=== PATIENT | male | born 1980 | race Caucasian/White ===

== ENCOUNTER 2021-02-08 22:39 | Emergency (ER) | payer OTHER ==
[~2021-02-08 22:39] MED LIST: BACTRIM DS TAB1 EACH PO; ERYTHROMYCIN O3.5 GM OS; FLEXERIL 10 MG10 MG PO; IBUPROFEN600 MG PO; KEFLEX CAP 500500 MG PO; MOBIC15 MG PO; NAPROSYN500 MG PO; SILVADENE20 GM TP
[2021-02-09 08:06] LABS: HEMOGLOBIN 16.6 gm/dl (14.0-17.5); RED BLOOD COUNT 5.57 M/UL (4.20-5.50); WHITE BLOOD COUNT 10.8 K/UL (4.5-11.0)
[2021-02-09 08:54] LABS: BUN/CREATININE RATIO 23 (0-10)
== END 2021-02-09 10:35 | disposition home or self-care (01) ==
LOC: ER1 22:39
PROVIDERS: Emergency Medicine
DX: R25.2 Cramp and spasm (principal)
CPT/HCPCS: 80048; 85025; 99283

== ENCOUNTER 2021-05-24 11:29 | Emergency (ER) | payer OTHER ==
[2021-05-24] MEDS ORDERED: VENTOLIN HFA 66.7 GM INH (14:29)
[2021-05-24] MEDS ORDERED: PREDNISONE50 MG PO (14:29)
[2021-05-24] MEDS ORDERED: IBUPROFEN600 MG PO (14:29)
== END 2021-05-24 14:35 | disposition home or self-care (01) ==
LOC: ER1 11:29
DX: U07.1 COVID-19 (principal)
CPT/HCPCS: 87081; 87880; 99283; U0002

== ENCOUNTER 2021-11-29 14:31 | Emergency (ER) | payer OTHER ==
[~2021-11-29 14:31] MED LIST changes: +PREDNISONE50 MG PO; +VENTOLIN HFA 66.7 GM INH
[2021-11-29 15:42] LABS: HEMOGLOBIN 13.6 gm/dl (14.0-17.5); RED BLOOD COUNT 4.59 M/UL (4.20-5.50); WHITE BLOOD COUNT 5.6 K/UL (4.5-11.0)
[2021-11-29 16:16] LABS: BUN/CREATININE RATIO 15 (0-10)
== END 2021-11-29 17:12 | disposition home or self-care (01) ==
LOC: ER1 14:31
PROVIDERS: Emergency Medicine
DX: F15.10 Other stimulant abuse, uncomplicated (principal); I10 Essential (primary) hypertension
CPT/HCPCS: 80053; 80307; 81001; 85025; 99282

== ENCOUNTER 2021-12-02 11:52 | Emergency (ER) | payer OTHER ==
[2021-12-02 12:46] LABS: HEMOGLOBIN 14.5 gm/dl (14.0-17.5); RED BLOOD COUNT 4.85 M/UL (4.20-5.50)
[2021-12-02 13:09] LABS: BUN/CREATININE RATIO 10 (0-10)
[2021-12-02] MEDS ORDERED: BACTROBAN OINT22 GM EXT (13:49)
[2021-12-02] MEDS ORDERED: CEPHALEXIN500 M1 PO (13:49)
== END 2021-12-02 14:10 | disposition home or self-care (01) ==
LOC: ER1 11:52
PROVIDERS: Physician Assistant Medical
DX: J34.0 Abscess, furuncle and carbuncle of nose (principal); Z20.822 Contact with and (suspected) exposure to COVID-19; I10 Essential (primary) hypertension; F17.290 Nicotine dependence, other tobacco product, uncomplicated
CPT/HCPCS: 80053; 80307; 81001; 85025; 99283; U0002

== ENCOUNTER → 2022-02-27 | Outpatient (CLI) | payer OTHER ==
[~2022-02-27] MED LIST changes: +BACTROBAN OINT22 GM EXT; +CEPHALEXIN500 M1 PO; +HYDROCODON-ACE1 EAC6 PO; +IBU800 MG PO; +LISINOPRIL5 MG PO
[2022-02-27 11:20] LABS: HEMOGLOBIN 13.7 gm/dl (14.0-17.5); RED BLOOD COUNT 4.64 M/UL (4.20-5.50); WHITE BLOOD COUNT 7.3 K/UL (4.5-11.0)
[2022-02-27 11:37] LABS: BUN/CREATININE RATIO 15 (0-10)
== END ==
LOC: OPSV2 09:00
PROVIDERS: Orthopaedic Surgery
DX: Z01.818 Encounter for other preprocedural examination (principal); G56.01 Carpal tunnel syndrome, right upper limb
CPT/HCPCS: 36415; 80048; 85025; 93005

== ENCOUNTER → 2022-03-02 | Day surgery (SDC) | payer OTHER ==
[~2022-03-02] VITALS: Ht 180.3 cm; Wt 97.5 kg
== END | disposition home or self-care (01) ==
LOC: OR 06:13
DX: G56.01 Carpal tunnel syndrome, right upper limb (principal); M25.511 Pain in right shoulder; I10 Essential (primary) hypertension
CPT/HCPCS: J0690; J1100; J2250; J2370; J2405; J2704; J3010; J7120

== ENCOUNTER 2022-03-13 04:45 | Emergency (ER) | payer OTHER ==
[2022-03-13 05:37] LABS: HEMOGLOBIN 13.4 gm/dl (14.0-17.5); RED BLOOD COUNT 4.58 M/UL (4.20-5.50)
== END 2022-03-13 06:05 | disposition home or self-care (01) ==
LOC: ER1 04:45
PROVIDERS: Family Medicine
DX: G89.18 Other acute postprocedural pain (principal); M25.531 Pain in right wrist; F17.290 Nicotine dependence, other tobacco product, uncomplicated
CPT/HCPCS: 85025; 86140; 99283

== ENCOUNTER 2022-04-18 12:21 | Emergency (ER) | payer OTHER ==
[2022-04-18 13:51] LABS: HEMOGLOBIN 15.2 gm/dl (14.0-17.5); RED BLOOD COUNT 5.18 M/UL (4.20-5.50); WHITE BLOOD COUNT 7.5 K/UL (4.5-11.0)
[2022-04-18 14:17] LABS: BUN/CREATININE RATIO 14 (0-10)
== END 2022-04-18 16:38 | disposition home or self-care (01) ==
LOC: ER1 12:21
PROVIDERS: Physician Assistant
DX: S00.01XA Abrasion of scalp, initial encounter (principal); R55 Syncope and collapse; R19.7 Diarrhea, unspecified; F17.290 Nicotine dependence, other tobacco product, uncomplicated; Z79.899 Other long term (current) drug therapy; W01.10XA Fall on same level from slipping, tripping and stumbling with subsequent striking against unspecified object, initial encounter; Y99.0 Civilian activity done for income or pay; Z20.822 Contact with and (suspected) exposure to COVID-19
CPT/HCPCS: 70450; 80053; 82550; 82553; 82962; 84484; 85025; 93005; 96374; 99284; J1885; U0002

== ENCOUNTER 2022-04-19 02:12 | Emergency (ER) | payer OTHER | END 2022-04-19 05:15 | disposition home or self-care (01) | LOC: ER1 02:12 | DX: S66.911A Strain of unspecified muscle, fascia and tendon at wrist and hand level, right hand, initial encounter (principal); S86.912A Strain of unspecified muscle(s) and tendon(s) at lower leg level, left leg, initial encounter; Z87.39 Personal history of other diseases of the musculoskeletal system and connective tissue; F17.290 Nicotine dependence, other tobacco product, uncomplicated; W17.89XA Other fall from one level to another, initial encounter; Y92.009 Unspecified place in unspecified non-institutional (private) residence as the place of occurrence of the external cause | CPT/HCPCS: 73130; 73564; 99283 ==